=== PATIENT | female | born 1995 | race Caucasian/White ===

== ENCOUNTER → 2018-01-17 | Outpatient (CLI) | payer OTHER ==
[2018-01-20 00:07] LABS: TISSUE TRANSGLUTAMINASE IgA <2 U/mL (0-3)
== END ==
LOC: M LAB 17:21
DX: K58.0 Irritable bowel syndrome with diarrhea (principal)
CPT/HCPCS: 82784

== ENCOUNTER 2018-01-26 08:04 | Day surgery (SDC) | payer OTHER ==
[2018-01-26] MEDS: NS 1,000 ML IV (08:43)
[2018-01-26] MEDS ORDERED: LIDOCAINE 2% INJ 100 MG/5 ML SDV (FOR ANES.) As Ordered (09:44)
[2018-01-26] MEDS ORDERED: PROPOFOL 200 MG/20 ML VIAL As Ordered (09:44)
== END 2018-01-26 09:59 | disposition home or self-care (01) ==
LOC: M OPP 08:04
DX: R19.7 Diarrhea, unspecified (principal); R19.4 Change in bowel habit; K58.0 Irritable bowel syndrome with diarrhea; K58.2 Mixed irritable bowel syndrome; M54.89 Other dorsalgia; F41.9 Anxiety disorder, unspecified; F32.9 Major depressive disorder, single episode, unspecified; G43.909 Migraine, unspecified, not intractable, without status migrainosus; Z79.899 Other long term (current) drug therapy
CPT/HCPCS: 45378

== ENCOUNTER → 2020-05-15 | Outpatient (REF) | payer OTHER ==
[~2020-05-15] MED LIST: BENT10CA PO; DICY20TA11 PO
[2020-05-15 20:53] LABS: CHLAMYDIA DNA AMPLIFICATION NEGATIVE (NEGATIVE); GC DNA AMPLIFICATION NEGATIVE (NEGATIVE)
== END ==
LOC: M SFHCLUC 16:09
PROVIDERS: ATTEND Physician Assistant
DX: R31.9 Hematuria, unspecified (principal); L29.2 Pruritus vulvae

== ENCOUNTER → 2020-05-18 | Outpatient (CLI) | payer OTHER ==
--- NOTE | 2020-05-18 08:29 | PFTRPT ---
Visit Date: 05/18/2020 Second ID: [id number] Referring Doctor: Serene Ham Height: 64.00 Inches Weight: 215.00 Lbs BSA: 2.02 Diagnosis: R06.02 TECHNIQUE: Pre- and post-bronchodilator study of excellent technical quality. FINDINGS: Forced vital capacity is normal. FEV1 is in proportion of obstructive index; therefore, normal. Expiratory limit within the flow-volume loop is normal. No significant bronchodilator response identified. Total lung capacity is borderline elevated. Diffusing capacity, although minimally reduced, is appropriate for alveolar volume. No hemoglobin acceptable for correction. IMPRESSION: Essentially normal study. MTDD
== END ==
LOC: M CARPUL 07:50
PROVIDERS: ATTEND Nurse Practitioner Family
DX: J45.909 Unspecified asthma, uncomplicated (principal)